=== PATIENT | female | born 1990 | race Caucasian/White ===

== ENCOUNTER 2019-10-15 16:32 | Emergency (ER) | payer OTHER ==
[2019-10-15] MEDS ORDERED: Ketorolac 60 MG/2 ML SDV IM ONE (17:12)
--- NOTE | 2019-10-15 17:16 | EDM.PDOC ---
ED HPI GENERAL MEDICAL PROBLEM - General Chief Complaint: Back Pain or Injury Stated Complaint: LOWER BACK Time Seen by Provider: 10/15/19 16:35 Source of Information: Reports: Patient History Limitations: Reports: No Limitations - History of Present Illness INITIAL COMMENTS - FREE TEXT/NARRATIVE: HISTORY AND PHYSICAL: History of present illness: Patient is a 29-year-old female who presents to the ED today with concern of low back pain over the past 1 to 2 days. Patient states she has had issues with her back in the past and has had some sciatica issues but has not had this in several years. Patient denies any trauma or injury to her back. Patient denies any saddle anesthesia or loss/retention of bowel bladder function. Patient states she has taken Tylenol today without relief of symptoms. Patient denies any other symptoms or concerns. Patient denies fever, chills, chest pain, shortness of breath, or cough. Denies headache, neck stiff ness, change in vision, syncope, or near syncope. Denies nausea, vomiting, abdominal pain, diarrhea, constipation, or dysuria. Has not noted any blood in urine or stool. Patient has been eating and drinking appropriately. Review of systems: As per history of present illness and below otherwise all systems reviewed and negative. Past medical history: As per history of present illness and as reviewed below otherwise noncontributory. Surgical history: As per history of present illness and as reviewed below otherwise noncontributory. Social history: See social history for further information Family history: As per history of present illness and as reviewed below otherwise noncontributory. Physical exam: General: Patient is alert, oriented, and in no acute distress. Patient sitting comfortably on exam table. HEENT: Atraumatic, normocephalic, pupils equal and reactive bilaterally, negative for conjunctival pallor or scleral icterus, mucous membranes moist, TMs normal bilaterally, throat clear, neck supple, nontender, trachea midline. No drooling or trismus noted. No meningeal signs. No hot potato voice noted. Lungs: Clear to auscultation, breath sounds equal bilaterally, chest nontender. Heart: S1S2, regular rate and rhythm without overt murmur Abdomen: Soft, nondistended, nontender. Negative for masses or hepatosplenomegaly. Negative for costovertebral tenderness. Pelvis: Stable nontender. Genitourinary: Deferred. Rectal: Deferred. Skin: Intact, warm, dry. No lesions or rashes noted. Extremities/musculoskeletal: Atraumatic, negative for cords or calf pain. Neurovascular unremarkable. No obvious deformity of the complete spine. No step-offs, crepitus, or point tenderness of the spinous process of complete spine. Patient does have mild to moderate discomfort with palpation of the paraspinous muscles of the lumbar spine. SLR intact bilaterally. Patellar reflex intact bilaterally. Heel/Toe gait intact. Neuro: Awake, alert, oriented. Cranial nerves II through XII unremarkable. Cerebellum unremarkable. Motor and sensory unremarkable throughout. Exam nonfocal. Notes: Discussed importance for follow-up with a primary care provider. Voices understanding and is agreeable to plan of care. Denies any further questions or concerns at this time. Diagnostics: UA, Uhcg, Lumbar XR Therapeutics: Toradol, Norflex Prescription: Diclofenac, Flexeril Impression: Low back pain Plan: 1. Rest, ice, elevate the affected extremity. You can apply ice and or heat 15 minutes on, 15 minutes off. 2. Tylenol as directed for pain management or discomfort. Take medication as prescribed. 3. Follow up with the primary care provider as discussed. Return to the ED as needed and as discussed. Definitive disposition and diagnosis as appropriate pending reevaluation and review of above. Low Back Pain Score (Numeric/FACES): 7 - Related Data Allergies Allergy/AdvReac Type Severity Reaction Status Date / Time No Known Allergies Allergy Verified 10/15/19 16:57 Home Meds: Home Meds Albuterol [Proair HFA] 2 puff INH ASDIRECTED PRN 11/19/14 [History] Cyclobenzaprine [Flexeril] 10 mg PO TID PRN #9 tab 10/15/19 [Rx] Diclofenac Sodium [Voltaren] 75 mg PO BIDMEALS PRN #15 tab.cr 10/15/19 [Rx] Past Medical History - Past Health History Medical/Surgical History: Denies Medical/Surgical History Respiratory History: Reports: Asthma Musculoskeletal History: Reports: Back Pain, Chronic - Infectious Disease History Infectious Disease History: Reports: Chicken Pox Social & Family History - Family History Family Medical History: Noncontributory - Tobacco Use Smoking Status *Q: Never Smoker - Caffeine Use Caffeine Use: Reports: Tea Other Caffeine Use: 1-3 per day - Recreational Drug Use Recreational Drug Use: No ED ROS GENERAL - Review of Systems Review Of Systems: Comprehensive ROS is negative, except as noted in HPI. ED EXAM, GENERAL - Physical Exam Exam: See Below (see dictation) Course - Vital Signs Last Recorded V/S: Last Vital Signs Temp 98.1 F 10/15/19 16:57 Pulse 88 10/15/19 16:57 Resp 18 10/15/19 16:57 BP 128/94 H 10/15/19 16:57 Pulse Ox 97 10/15/19 16:57 - Orders/Labs/Meds Labs: Laboratory Tests 10/15/19 10/15/19 Range/Units 17:13 17:13 Urine Color YELLOW Urine Appearance CLEAR Urine pH 5.5 (5.0-8.0) Ur Specific Colgate >= 1.030 (1.001-1.035) Urine Protein NEGATIVE (NEGATIVE) mg/dL Urine Glucose (UA) NEGATIVE (NEGATIVE) mg/dL Urine Ketones NEGATIVE (NEGATIVE) mg/dL Urine Occult Blood NEGATIVE (NEGATIVE) Urine Nitrite NEGATIVE (NEGATIVE) Urine Bilirubin NEGATIVE (NEGATIVE) Urine Urobilinogen 0.2 (<2.0) EU/dL Ur Leukocyte Esterase NEGATIVE (NEGATIVE) Urine HCG, Qual NEGATIVE (NEGATIVE) Meds: Medications Discontinued Medications Generic Name Dose Route Start Last Admin Trade Name Corey PRN Reason Stop Dose Admin Ketorolac Tromethamine 60 mg 10/15/19 17:12 10/15/19 17:35 Toradol IM 10/15/19 17:13 60 mg ONETIME ONE Administration Orphenadrine Citrate 60 mg 10/15/19 17:12 10/15/19 17:32 Norflex IM 10/15/19 17:13 60 mg ONETIME ONE Administration Departure - Departure Time of Disposition: 18:45 Disposition: Home, Self-Care 01 Clinical Impression: Low back pain Qualifiers: Chronicity: acute Back pain laterality: bilateral Sciatica presence: without sciatica Qualified Code(s): M54.5 - Low back pain - Discharge Information Prescriptions: Cyclobenzaprine [Flexeril] 10 mg PO TID PRN #9 tab PRN Reason: Spasms Diclofenac Sodium [Voltaren] 75 mg PO BIDMEALS PRN #15 tab.cr PRN Reason: Pain Instructions: Acute Back Pain, Adult Referrals: Clinton Resendez MD [Primary Care Provider] - Forms: ED Department Discharge Additional Instructions: The following information is given to patients seen in the emergency department who are being discharged to home. This information is to outline your options for follow-up care. We provide all patients seen in our emergency department with a follow-up referral. The need for follow-up, as well as the timing and circumstances, are variable depending upon the specifics of your emergency department visit. If you don't have a primary care physician on staff, we will provide you with a referral. We always advise you to contact your personal physician following an emergency department visit to inform them of the circumstance of the visit and for follow-up with them and/or the need for any referrals to a consulting specialist. The emergency department will also refer you to a specialist when appropriate. This referral assures that you have the opportunity for follow-up care with a specialist. All of these measure are taken in an effort to provide you with optimal care, which includes your follow-up. Under all circumstances we always encourage you to contact your private physician who remains a resource for coordinating your care. When calling for follow-up care, please make the office aware that this follow-up is from your recent emergency room visit. If for any reason you are refused follow-up, please contact the [facility] Emergency Department at and asked to speak to the emergency department charge nurse. [facility] [address] [place], [place] [id number] [place] [address] 1. Rest, ice, elevate the affected extremity. You can apply ice and or heat 15 minutes on, 15 minutes off. 2. Tylenol as directed for pain management or discomfort. take medication as prescribed 3. Follow up with the primary care provider as discussed. Return to the ED as needed and as discussed. Sepsis Event Note - Evaluation Sepsis Screening Result: No Definite Risk - Focused Exam Vital Signs: Vital Signs Temp Pulse Resp BP Pulse Ox 10/15/19 16:57 98.1 F 88 18 128/94 H 97 Date Exam was Performed: 10/15/19 Time Exam was Performed: 18:45
--- NOTE | 2019-10-15 18:13 | CR ---
Lumbar spine: AP, lateral and coned-down lateral view centered to the lumbosacral junction were obtained. Moderate to severe disc space narrowing is seen at L4-L5. Moderate disc space narrowing at L5-S1 is noted. Other disc spaces are maintained in height. Vertebral body heights are maintained. Pedicles are intact. Visualized transverse and spinous processes are intact. Sacroiliac joints are within normal limits. No subluxation or discrete fracture is seen. Impression: 1. Degenerative disc changes as noted above. 2. No additional abnormality is seen on 3 view lumbar spine study. Diagnostic code #2 Study was dictated in Mountain Standard Time
[2019-10-15 19:24] VITALS: BP 129/84; PULSE 90
== END 2019-10-15 18:37 | disposition home or self-care (01) ==
LOC: MW.ED 16:32
DX: M54.5 Low back pain (principal); J45.909 Unspecified asthma, uncomplicated; Z79.899 Other long term (current) drug therapy
CPT/HCPCS: 72100; 81003; 81025; 96372; 99284; J1885; J2360; 99283

== ENCOUNTER 2019-11-01 23:30 | Emergency (ER) | payer OTHER ==
--- NOTE | 2019-11-01 23:48 | EDM.PDOC ---
ED HPI GENERAL MEDICAL PROBLEM - General Chief Complaint: General Stated Complaint: BRUISE ON ABDOMINAL Time Seen by Provider: 11/01/19 23:48 - History of Present Illness INITIAL COMMENTS - FREE TEXT/NARRATIVE: HPI 29-year-old morbidly obese female presents for evaluation of a slightly smaller than palmar sized area of nontender ecchymosis on her right lateral mid abdominal wall that she noticed 10 minutes prior to presentation. The patient is concerned that may be a side effect of Celebrex. Patient denies abdominal pain, difficulty eating, epigastric pain, fevers, chills, or further abnormalities. Patient takes no subcutaneous medications. ROS with no recent constitutional symptoms. Exam HR 84, HR 20, BP 145/88, T 36.9C, SaO2 95% on room air. Gen: Pleasant, nontoxic-appearing, resting comfortably. HEENT: NC, AT, PEERL, EOMI. Resp: Unlabored respirations with a normal work of breathing. Card: Extremities warm and well perfused. GI: obese, nontender to palpation throughout all quadrants, no epigastric tenderness palpation, no rebound, no guarding. : Deferred MSK: No visible deformities, strength and tone without visually appreciable deficit. Neuro: alert and oriented 3, no facial asymmetry, vision and hearing WNL. Heme/Lymph: Deferred Skin: on an anterior axillary line on the lower mid right abdomen there is a slightly smaller than palmar sized area of superficial ecchymosis without surrounding erythema, there is no tenderness, crepitus, fluctuance, immediately medial to this is an approximately quarter sized but much fainter area of discoloration. Psych: markedly anxious mood and affect, otherwise appropriate. MDM Previous chart, nursing note, and vitals reviewed. A: 29-year-old morbidly obese female presents for evaluation of a slightly smaller than palmar sized area of nontender ecchymosis on her right lateral mid abdominal wall that she noticed 10 minutes prior to presentation. DDx & Evaluation: patient with superficial abdominal wall ecchymosis, history, exam are not consistent with retroperitoneal bleeding, no further evaluation presently indicated. No evidence of infection. Discharge with PCP follow-up recommended. Impression: ecchymosis. - Related Data Allergies Allergy/AdvReac Type Severity Reaction Status Date / Time No Known Allergies Allergy Verified 10/15/19 16:57 Home Meds: Home Meds Albuterol [Proair HFA] 2 puff INH ASDIRECTED PRN 11/19/14 [History] Celecoxib [CeleBREX] 100 mg PO DAILY 11/01/19 [History] Past Medical History - Past Health History Medical/Surgical History: Denies Medical/Surgical History HEENT History: Reports: None Cardiovascular History: Reports: None Respiratory History: Reports: Asthma Gastrointestinal History: Reports: None Genitourinary History: Reports: None Musculoskeletal History: Reports: Back Pain, Chronic Neurological History: Reports: None Psychiatric History: Reports: None Endocrine/Metabolic History: Reports: None Hematologic History: Reports: None Dermatologic History: Reports: None - Infectious Disease History Infectious Disease History: Reports: Chicken Pox Social & Family History - Family History Family Medical History: Noncontributory - Tobacco Use Smoking Status *Q: Never Smoker - Caffeine Use Caffeine Use: Reports: Tea Other Caffeine Use: 1-3 per day - Recreational Drug Use Recreational Drug Use: Yes Recreational Drug Type: Reports: Marijuana/Hashish ED ROS GENERAL - Review of Systems Review Of Systems: See Below ED EXAM, GENERAL - Physical Exam Exam: See Below Course - Vital Signs Last Recorded V/S: Last Vital Signs Temp 36.9 C 11/01/19 23:40 Pulse 84 11/01/19 23:40 Resp 20 11/01/19 23:40 BP 145/88 H 11/01/19 23:40 Pulse Ox 95 11/01/19 23:40 Departure - Departure Time of Disposition: 23:48 Disposition: Home, Self-Care 01 Clinical Impression: Bruise - Discharge Information Referrals: Clinton Resendez MD [Primary Care Provider] - Additional Instructions: You were in seen in the [facility] Emergency Department for evaluation of discoloration on your abdomen, your believed to have a bruise. This should gradually resolve over several weeks. Please read and follow all of the instructions below. Please follow up with your primary care physician and 2-3 days. When calling for follow-up care, please make the office aware that this follow-up is from your recent emergency room visit. If for any reason you are refused follow-up, please contact the [facility] Emergency Department at and asked to speak to the emergency department charge nurse. Your care today was limited to identifying and treating emergent medical problems only. Many people have subtle differences in their test results that require follow up with their outpatient physician(s) to correctly determine if this represents a normal variation or concerning abnormality with respect to your specific health. The care given to you today was limited to identifying and treating emergent medical problems - you need to request a copy of all of your medical records from today's visit and follow up with your outpatient physician(s) to review both today's visit and your overall health. If you have any new symptoms or if you are at all concerned about your health please return immediately to the emergency department. Prescriptions: If you are uninsured or have financial difficulties with filling your prescription(s), you may consider using a free pharmacy discount service such as [employer] (gBox) or [employer] (Front [employer]). These services allow you to search for a medication on your phone (or computer) and obtain a coupon that usually has a significant discount from the list rodrigez at a pharmacy. Your physician as well as [facility] does not have a financial relationship with either of these services. You may also wish to speak with your physician to determine if lower cost prescriptions are possible. Obtaining primary care: 1. [facility] provides pediatrics (children), family medicine (children, adults, and some obstetrical care), and internal medicine (adults). Further specialty care is also available. Same day appointments are available. They may be contacted at [phone] and are open Friday through Friday 8 AM to [address] [facility] are located at [facility], [address] [place] [address]. 2. [facility] offers family medicine, internal medicine, womens health, and further specialty care. [facility] may be contacted at [phone]. [facility] is located at [facility] [place], [address]. 3. If you have health insurance, please also contact your insurer for a list of accepting providers under your policy, you may contact these providers for further health care. Occupational health: Work related injuries may consider following up with [facility], . Occupational health services are located at [address] [place] [address] and are open Friday through Friday from 7: 30 am to 5:00 pm. Obstetrical and Gynecological Care: [facility], , Friday through Friday 8 AM to 5 PM. [address], [place] [address]. Eyecare: If you have an eye injury you should follow up with your nutrition technician or with [facility], at [phone] or [phone] , they are located at [address] [place] [address]. Dental Care Dioni Mane DDS. [address] [place], [place]. Ph. [phone] Noe Mane DDS MS. [address] [facility], [place], [place]. Ph. Timothy Rodriges DDS. 10 09/[address] [place] [address]. Ph. [phone] Justin Sanchez DDS. [address] [facility] 4 [place], [place]. Ph. [phone] Rudolph Bellamy DDS PC. [address] [facility] [address] [place], [place]. Ph. Maxx Berry DDS. [address] [place] [address]. Ph. [phone] [facility]. [address] [place], [place]. Ph. [phone] [facility]. [address] [place] [address], [place], [place]. Ph. [phone] [facility] [address] [place] [phone]. Ph. [facility]. [address] [place] [address] [address] [place], [place]. Ph. [facility]. [address] [place], [place]. Ph. Sepsis Event Note - Evaluation Sepsis Screening Result: No Definite Risk - Focused Exam Vital Signs: Vital Signs Temp Pulse Resp BP Pulse Ox 11/01/19 23:40 36.9 C 84 20 145/88 H 95 Date Exam was Performed: 11/01/19 Time Exam was Performed: 23:47
[2019-11-01 23:57] VITALS: BP 138/82; PULSE 72
== END 2019-11-01 23:55 | disposition home or self-care (01) ==
LOC: MW.ED 23:30
DX: M79.81 Nontraumatic hematoma of soft tissue (principal); J45.909 Unspecified asthma, uncomplicated; Z79.899 Other long term (current) drug therapy
CPT/HCPCS: 99283